=== PATIENT | male | born 1975 | race Caucasian/White ===

== ENCOUNTER 2017-07-18 12:31 | Emergency (ER) | payer OTHER, BC ==
--- NOTE | 2017-07-18 13:14 | EDM.PDOC ---
ED HPI GENERAL MEDICAL PROBLEM - General Chief Complaint: Abdominal Pain Stated Complaint: ABDOMINAL PAIN WORK RELATED Time Seen by Provider: 07/18/17 13:08 Source of Information: Reports: Patient, Family History Limitations: Reports: No Limitations - History of Present Illness INITIAL COMMENTS - FREE TEXT/NARRATIVE: HISTORY AND PHYSICAL: []41-year-old male presenting with concerns of History of Present Illness: []Patient came home from work last night. Abdominal pain straining to go to the bathroom and felt his right above his navel pain and now there is protrusion. Pain continued today and he reports to the emergency department Review of Systems: As per history of present illness and below otherwise all systems reviewed and negative. Past medical history: As per history of present illness and as reviewed below otherwise noncontributory. Surgical history: As per history of present illness and as reviewed below otherwise noncontributory. Social history: No reported history of drug or alcohol abuse. Family history: As per history of present illness and as reviewed below otherwise noncontributory. Physical exam: Heart and oriented male answering questions in full sentences without any shortness of breath HEENT: Atraumatic, normocehpalic, pupils reactive, negative for conjunctival pallor or scleral icterus, mucous membranes moist, throat clear, neck supple, nontender, trachea midline. Lungs: Clear to auscultation, breath sounds equal bilaterally, chest non tender. Heart: S1S2, regular, negative for clicks, rubs, or JVD. Abdomen: Soft, distended at the umbilicus, tender palpation herniation present this is easily reduced. Negative for masses or hepatossplenmegaly. Negative for costovertebral tenderness. Pelvis: Stable nontender. Genitourinary: Deferred. Rectal: Deferred Extremities: Atraumatic, negative for cords or calf pain. Neurovascular unremarkable. Neuro: Awake, alert, oriented. Cranial nerves II through XII unremarkable. Cerebellum unremarkable. Motor and sensory unremarkable throughout. Exam nonfocal. Diagnostics: [] Therapeutics: []Reduction of umbilical hernia Impression: []Umbilical hernia Plan: []Discharge home Refer to Dr. Marbella Higgins use the abdominal binder that you have at home Return to the emergency room as discussed and directed Definitive disposition and diagnosis as appropriate pending reevaluation and review of above. Onset: Sudden Bilateral Lower Abdomen Pain Score (Numeric/FACES): 10 - Related Data Allergies Allergy/AdvReac Type Severity Reaction Status Date / Time No Known Allergies Allergy Verified 07/18/17 12:56 Home Meds: Home Meds . [No Known Home Meds] 07/18/17 [History] Past Medical History Gastrointestinal History: Reports: Colon Polyp Genitourinary History: Reports: Renal Calculus - Past Surgical History GI Surgical History: Reports: Hernia, Inguinal Other Musculoskeletal Surgeries/Procedures:: (R) hand surgery Dermatological Surgical History: Reports: Skin Graft Social & Family History - Family History Family Medical History: Noncontributory - Tobacco Use Smoking Status *Q: Never Smoker Second Hand Smoke Exposure: No - Caffeine Use Caffeine Use: Reports: Soda Caffeine Use Comment: daily - Recreational Drug Use Recreational Drug Use: No ED ROS GENERAL - Review of Systems Review Of Systems: ROS reveals no pertinent complaints other than HPI. ED EXAM, GI/ABD - Physical Exam Exam: See Below (see dictation) Course - Vital Signs Last Recorded V/S: Last Vital Signs Temp 36.4 C 07/18/17 12:47 Pulse 82 07/18/17 12:47 Resp 18 07/18/17 12:47 BP 131/90 07/18/17 12:47 Pulse Ox 100 07/18/17 12:47 Departure - Departure Time of Disposition: 13:11 Disposition: Home, Self-Care 01 Condition: Good Clinical Impression: Abdominal pain Qualifiers: Abdominal location: periumbilical Qualified Code(s): R10.33 - Periumbilical pain Umbilical hernia Qualifiers: Obstruction and gangrene presence: without obstruction or gangrene Qualified Code(s): K42.9 - Umbilical hernia without obstruction or gangrene - Discharge Information Instructions: Umbilical Hernia, Adult Referrals: PCP,None [Primary Care Provider] - Marbella Higgins MD [Physician] - Additional Instructions: The following information is given to patients seen in the emergency department who are being discharged to home. This information is to outline your options for follow-up care. We provide all patients seen in our emergency department with a follow-up referral. The need for follow-up, as well as the timing and circumstances, are variable depending upon the specifics of your emergency department visit. If you don't have a primary care physician on staff, we will provide you with a referral. We always advise you to contact your personal physician following an emergency department visit to inform them of the circumstance of the visit and for follow-up with them and/or the need for any referrals to a consulting specialist. The emergency department will also refer you to a specialist when appropriate. This referral assures that you have the opportunity for followup care with a specialist. All of these measure are taken in an effort to provide you with optimal care, which includes your followup. Under all circumstances we always encourage you to contact your private physician who remains a resource for coordinating your care. When calling for followup care, please make the office aware that this follow-up is from your recent emergency room visit. If for any reason you are refused follow-up, please contact the [facility] emergency department at and asked to speak to the emergency department charge nurse. See Dr. Marbella Higgins [facility] Specialty Care - General Surgery Professional Building [address] [place] [address], [address] [place] [address] You may use the abdominal binder that you have at home to help keep this reduced Worsening of symptoms or changes in your health status return to emergency room as directed and discussed
== END 2017-07-18 13:31 | disposition home or self-care (01) ==
LOC: MW.ED 12:31
DX: K42.9 Umbilical hernia without obstruction or gangrene (principal)
CPT/HCPCS: 99283

== ENCOUNTER 2017-07-30 06:49 | Day surgery (SDC) | payer OTHER, BC ==
[~2017-07-30 06:49] MED LIST: Lactated Ringers 1,000 ML IV SCH; ceFAZolin 2 GM in Premix Bag 1 BAG IV SCH
[2017-07-30] MEDS ORDERED: Bupivacaine 0.5% 30 ML SDV ONE (07:23)
[2017-07-30] MEDS ORDERED: ceFAZolin 1 GM Vial ONE (07:23)
[2017-07-30] MEDS ORDERED: Ondansetron 4 MG/2 ML SDV ONE (07:24)
[2017-07-30] MEDS ORDERED: Propofol 200 MG/20 ML SDV ONE ×2 (07:24→08:25)
[2017-07-30] MEDS ORDERED: Rocuronium 10 MG/ML 10 ML Syringe ONE (07:24)
[2017-07-30] MEDS ORDERED: Midazolam 1 MG/ML 2 ML SDV ONE ×2 (07:24→08:25)
[2017-07-30] MEDS ORDERED: fentaNYL 250 MCG/5 ML SDV ONE (07:25)
--- NOTE | 2017-07-30 07:49 | PCM.PREANE ---
Preanesthetic Assessment - Procedure Proposed Procedure: umbilical hernia repair - Anesthesia/Transfusion/Family Hx Anesthesia History: Prior Anesthesia Without Reaction Family History of Anesthesia Reaction: No Transfusion History: No Prior Transfusion(s) Intubation History: Unknown - Review of Systems General: No Symptoms Pulmonary: No Symptoms, Other (former smoker) Cardiovascular: No Symptoms Gastrointestinal: Abdominal Pain (reducible umbilical hernia) Neurological: No Symptoms Other: Reports: None - Physical Assessment NPO Status Date: 07/29/17 NPO Status Time: 22:00 O2 Sat by Pulse Oximetry: 96 Respiratory Rate: 16 Vital Signs: Last Vital Signs Temp 97.2 F 07/30/17 07:33 Pulse 77 07/30/17 07:33 Resp 16 07/30/17 07:33 BP 134/82 07/30/17 07:33 Pulse Ox 96 07/30/17 07:33 Height: 5 ft 9 in Weight: 224 lb ASA Class: 2 Mental Status: Alert & Oriented x3 Airway Class: Mallampati = 2 Dentition: Reports: Normal Dentition, Caries Thyro-Mental Finger Breadths: 3 Mouth Opening Finger Breadths: 3 ROM/Head Extension: Full Lungs: Clear to Auscultation, Normal Respiratory Effort Cardiovascular: Regular Rate, Regular Rhythm, No Murmurs - Allergies Allergies/Adverse Reactions: Allergies Allergy/AdvReac Type Severity Reaction Status Date / Time codeine Allergy Nausea Verified 07/24/17 14:25 - Blood Blood Available: No Product(s) Available: None - Acknowledgements Anesthesia Type Planned: General Anesthesia (OET ) Pt an Appropriate Candidate for the Planned Anesthesia: Yes Alternatives and Risks of Anesthesia Discussed w Pt/Guardian: Yes Pt/Guardian Understands and Agrees with Anesthesia Plan: Yes PreAnesthesia Questionnaire HEENT History: Reports: Hard of Hearing Other HEENT History: corry hearing aids Gastrointestinal History: Reports: Colon Polyp, Other (See Below) Other Gastrointestinal History: occasional heartburn Genitourinary History: Reports: Renal Calculus Musculoskeletal History: Reports: Fracture Neurological History: Reports: Other (See Below) Other Neuro History: migraines in the past Endocrine/Metabolic History: Reports: Obesity/BMI 30+ - Past Surgical History Head Surgeries/Procedures: Reports: None GI Surgical History: Reports: Colonoscopy, Hernia, Inguinal Male Surgical History: Reports: Lithotripsy (ESWL) Musculoskeletal Surgical History: Reports: Other (See Below) Other Musculoskeletal Surgeries/Procedures:: (R) hand surgery with bone graft Dermatological Surgical History: Reports: Skin Graft - SUBSTANCE USE Smoking Status *Q: Former Smoker Tobacco Use Within Last Twelve Months: No Recreational Drug Use History: No - HOME MEDS Home Medications: Home Meds . [No Known Home Meds] 07/18/17 [History] - CURRENT (IN HOUSE) MEDS Current Meds: Current Medications Cefazolin Sodium/Dextrose 2 gm (/ Premix) 50 mls @ 100 mls/hr IV ONETIME LISETH Lactated Ringer's (Ringers, Lactated) 1,000 mls @ 125 mls/hr IV ASDIRECTED LISETH Last Admin: 07/30/17 07:38 Dose: 125 mls/hr Discontinued Medications Bupivacaine HCl (Marcaine 0.5%) Confirm Administered Dose 30 ml .ROUTE .STK-MED ONE Stop: 07/30/17 07:24 Cefazolin Sodium (Ancef) Confirm Administered Dose 1 gm .ROUTE .STK-MED ONE Stop: 07/30/17 07:24 Fentanyl (Sublimaze) Confirm Administered Dose 250 mcg .ROUTE .STK-MED ONE Stop: 07/30/17 07:26 Midazolam HCl (Versed 1 Mg/Ml) Confirm Administered Dose 2 mg .ROUTE .STK-MED ONE Stop: 07/30/17 07:25 Ondansetron HCl (Zofran) Confirm Administered Dose 4 mg .ROUTE .STK-MED ONE Stop: 07/30/17 07:25 Propofol (Diprivan 20 Ml) Confirm Administered Dose 200 mg .ROUTE .STK-MED ONE Stop: 07/30/17 07:25 Rocuronium Thida (Zemuron) Confirm Administered Dose 100 mg .ROUTE .STK-MED ONE Stop: 07/30/17 07:25
[2017-07-30] MEDS ORDERED: ceFAZolin/Dextrose,Iso-Osmotic 2 GM/50 ML Duplex Bag IV ONE (08:13)
[2017-07-30] MEDS ORDERED: fentaNYL 100 MCG/2 ML SDV ONE (08:25)
[2017-07-30] MEDS ORDERED: fentaNYL 100 MCG/2 ML SDV IVPUSH PRN (08:46)
[2017-07-30] MEDS ORDERED: Ketorolac 30 MG/ML SDV ONE (08:47)
[2017-07-30] MEDS ORDERED: Ondansetron 4 MG/2 ML SDV IVPUSH PRN (09:07)
[2017-07-30] MEDS ORDERED: HYDROmorphone 2 MG/ML SDV IVPUSH PRN (09:08)
[2017-07-30] MEDS ORDERED: Ketorolac 10 MG Tab PO PRN (09:09)
--- NOTE | 2017-07-30 09:14 | PCM.OPNOTE ---
- General Post-Op/Procedure Note Date of Surgery/Procedure: 07/30/17 Operative Procedure(s): Repair incarcerated umbilical hernia with 4.3 cm ventral ex mesh Pre Op Diagnosis: Incarcerated umbilical hernia Post-Op Diagnosis: Same Anesthesia Technique: General ET Tube (ASA II) Primary Surgeon: Gulshan Granger Fluid Replacement, Intraop: 1,300 EBL in mLs: 10 Condition: Good Free Text/Narrative:: DICTATION [id number] CPT CODE [id number]
[2017-07-30] MEDS ORDERED: Lactated Ringers 1,000 ML IV SCH (09:15)
--- NOTE | 2017-07-30 09:27 | OR ---
SURGEON: Gulshan Granger M.D. DATE OF PROCEDURE: 07/30/2017 PROCEDURE PERFORMED: Repair of incarcerated umbilical hernia with 4.3 cm Ventralex mesh. ANESTHESIA: General endotracheal. ASA CLASSIFICATION: II. PREOPERATIVE DIAGNOSIS: Incarcerated umbilical hernia. POSTOPERATIVE DIAGNOSIS: Incarcerated umbilical hernia. ESTIMATED BLOOD LOSS: 10 mL. INTRAOPERATIVE FLUID REPLACEMENT: 1300 mL of crystalloid. DESCRIPTION OF PROCEDURE: The patient was taken to the operating room and placed on the operating table in a supine position. Time-out was called for appropriate identification of the patient and procedure. Thigh-high KAL and sequential compression boots were placed. Following satisfactory attainment of general endotracheal anesthesia, the abdomen was prepped with DuraPrep solution. Sterile drapes were applied. The skin overlying the umbilicus was infiltrated with 8 mL of 0.5% Marcaine solution. Field block was also accomplished. A skin incision was then made just above the umbilicus extending into the umbilicus and deepened into the subcutaneous tissue. The hernia sac was sharply dissected away from the surrounding fascia. The under side of the fascia was then cleared to allow for placement of mesh. A 4.3 cm Ventralex mesh was brought to the operating table and soaked in 1% Ancef solution. This was then placed in an underlay technique and secured to the fascia with interrupted 0 Ethibond horizontal mattress sutures. All sutures were placed under direct vision and held with hemostats. Once all sutures have been placed, they were secured. The patient was given a Valsalva maneuver to 35 cm of water. No defect was noted. The wings of the Ventralex mesh were then trimmed. The fascia was then reapproximated over the mesh again with interrupted 0 Ethibond sutures. The wound was then inspected for hemostasis and no bleeding was noted. The wound was irrigated with 1% Ancef solution and all fluid aspirated. Subcutaneous tissue was reapproximated with 3- 0 Vicryl. The skin edges were reapproximated with subcuticular 4-0 Monocryl reinforced with Steri-Strips. Sterile Tegaderm pad was placed as a dressing. Sponge, needle, and instrument counts were all correct. The patient tolerated the procedure well and was taken to recovery room in stable condition. CANDACE / RAVNE /[id number]
--- NOTE | 2017-07-30 09:44 | PCM.POSTAN ---
POST ANESTHESIA ASSESSMENT - MENTAL STATUS Mental Status: Oriented, Somnolent - VITAL SIGNS Pulse Rate: 76 SaO2: 98 Resp Rate: 12 Blood Pressure: 126/76 - RESPIRATORY Respiratory Status: Respiratory Rate WNL, Airway Patent, O2 Saturation Stable - CARDIOVASCULAR CV Status: Pulse Rate WNL, Blood Pressure Stable - GASTROINTESTINAL GI Status: No Symptoms - PAIN Pain Score: 0 - POST OP HYDRATION Hydration Status: Adequate & Stable
--- NOTE | 2017-07-30 12:21 | PCM48HPAN ---
Post Anesthesia Note - EVALUATION WITHIN 48HRS OF ANESTHETIC Vital Signs in Normal Range: Yes Patient Participated in Evaluation: Yes Respiratory Function Stable: Yes Airway Patent: Yes Cardiovascular Function Stable: Yes Hydration Status Stable: Yes Pain Control Satisfactory: Yes Nausea and Vomiting Control Satisfactory: Yes Mental Status Recovered: Yes Pulse Rate: 76 Resp Rate: 14 Blood Pressure: 126/76
== END 2017-07-30 12:30 | disposition home or self-care (01) ==
LOC: MW.SDS 06:49
PROVIDERS: ATTEND Surgery
DX: K42.0 Umbilical hernia with obstruction, without gangrene (principal); E66.9 Obesity, unspecified; Z88.5 Allergy status to narcotic agent; Z86.010 Personal history of colon polyps; Z87.442 Personal history of urinary calculi; Z98.890 Other specified postprocedural states; Z87.891 Personal history of nicotine dependence; Z68.30 Body mass index [BMI] 30.0-30.9, adult
CPT/HCPCS: 49587; C1781; J0690; J1885; J2250; J2405; J3010; J7120; J2704

== ENCOUNTER 2017-10-29 09:52 | Day surgery (SDC) | payer BC ==
[~2017-10-29 09:52] MED LIST changes: -ceFAZolin 2 GM in Premix Bag 1 BAG IV SCH
--- NOTE | 2017-10-29 10:25 | PCM.PREANE ---
Preanesthetic Assessment - Procedure Proposed Procedure: Colonoscopy - Anesthesia/Transfusion/Family Hx Anesthesia History: Prior Anesthesia Without Reaction Family History of Anesthesia Reaction: No Transfusion History: No Prior Transfusion(s) Intubation History: Unknown Additional History: Sugars have been in normal range; wears hearing aids - Review of Systems General: No Symptoms Pulmonary: Other (former smoker) Cardiovascular: No Symptoms Gastrointestinal: Other (hx of polyps) Neurological: No Symptoms Other: Reports: Diabetes (Type II - on metformin) - Physical Assessment NPO Status Date: 10/28/17 NPO Status Time: 22:00 Height: 5 ft 10 in Weight: 211 lb ASA Class: 2 Mental Status: Alert & Oriented x3 Airway Class: Mallampati = 1 Dentition: Reports: Normal Dentition Thyro-Mental Finger Breadths: 3 Mouth Opening Finger Breadths: 3 ROM/Head Extension: Limited/Partial Lungs: Clear to Auscultation, Normal Respiratory Effort Cardiovascular: Regular Rate, Regular Rhythm - Allergies Allergies/Adverse Reactions: Allergies Allergy/AdvReac Type Severity Reaction Status Date / Time codeine Allergy Nausea Verified 10/25/17 10:19 - Blood Blood Available: No Product(s) Available: None - Anesthesia Plan Pre-Op Medication Ordered: None - Acknowledgements Anesthesia Type Planned: MAC Pt an Appropriate Candidate for the Planned Anesthesia: Yes Alternatives and Risks of Anesthesia Discussed w Pt/Guardian: Yes Pt/Guardian Understands and Agrees with Anesthesia Plan: Yes PreAnesthesia Questionnaire HEENT History: Reports: Hard of Hearing Other HEENT History: has bilateral hearing aides Gastrointestinal History: Reports: Colon Polyp Other Gastrointestinal History: occasional heartburn Genitourinary History: Reports: Renal Calculus Musculoskeletal History: Reports: Fracture Other Musculoskeletal History: hx of fx right hand Neurological History: Reports: Other (See Below) Other Neuro History: hx of motion sickness Endocrine/Metabolic History: Reports: Diabetes, Type II - Past Surgical History Head Surgeries/Procedures: Reports: None GI Surgical History: Reports: Colonoscopy, Hernia, Inguinal, Other (See Below) Other GI Surgeries/Procedures: hx of bilateral inguinal hernia repairs and umbilical hernia repair Male Surgical History: Reports: Lithotripsy (ESWL) Musculoskeletal Surgical History: Reports: ORIF Other Musculoskeletal Surgeries/Procedures:: hx of pinning right hand fx, pins removed and ORIF with plate and screws - SUBSTANCE USE Smoking Status *Q: Former Smoker Tobacco Use Within Last Twelve Months: No Recreational Drug Use History: No - HOME MEDS Home Medications: Home Meds metFORMIN HCl [Metformin HCl] 500 mg PO BID 10/25/17 [History] - CURRENT (IN HOUSE) MEDS Current Meds: Current Medications Lactated Ringer's (Ringers, Lactated) 1,000 mls @ 125 mls/hr IV ASDIRECTED LISETH
[2017-10-29] MEDS ORDERED: Propofol 200 MG/20 ML SDV ONE ×2 (10:48→11:40)
[2017-10-29] MEDS ORDERED: fentaNYL 100 MCG/2 ML SDV ONE (10:48)
[2017-10-29] MEDS ORDERED: Midazolam 1 MG/ML 2 ML SDV ONE (10:48)
[2017-10-29] MEDS ORDERED: Lidocaine 2% 5 ML SDV ONE (10:48)
[2017-10-29] MEDS ORDERED: ePHEDrine 50 MG/ML SDV ONE ×2 (11:03)
[2017-10-29] MEDS ORDERED: Ondansetron 4 MG/2 ML SDV IVPUSH PRN (12:04)
[2017-10-29] MEDS ORDERED: Sodium Chloride 0.9% 10 ML Syringe FLUSH PRN (12:04)
[2017-10-29] MEDS ORDERED: Sodium Chloride 0.9% 2.5 ML Syringe FLUSH PRN (12:04)
--- NOTE | 2017-10-29 12:07 | PCM.OPNOTE ---
- General Post-Op/Procedure Note Date of Surgery/Procedure: 10/29/17 Operative Procedure(s): Colonoscopy w/ snare descending colon polypectomy Pre Op Diagnosis: Personal history of colon polyps. Intermittent rectal bleeding. Post-Op Diagnosis: Descending colon polyp Anesthesia Technique: MAC (ASA II) Primary Surgeon: Gulshan Granger Winding Inspector: Jerson Avitia Condition: Good Free Text/Narrative:: Dictation [id number] CPT CODE [id number]
--- NOTE | 2017-10-29 12:22 | PCM.POSTAN ---
POST ANESTHESIA ASSESSMENT - MENTAL STATUS Mental Status: Oriented, Somnolent - RESPIRATORY Respiratory Status: Respiratory Rate WNL, Airway Patent, O2 Saturation Stable - CARDIOVASCULAR CV Status: Pulse Rate WNL, Blood Pressure Stable - GASTROINTESTINAL GI Status: No Symptoms - POST OP HYDRATION Hydration Status: Adequate & Stable
--- NOTE | 2017-10-29 12:54 | OR ---
SURGEON: Gulshan Granger M.D. DATE OF PROCEDURE: 10/29/2017 OPERATION PERFORMED: Colonoscopy with snare descending colon polypectomy. SUPERVISOR LINE DEPARTMENT: Dr. Varner, PGY2. ANESTHESIA: MAC. ASA CLASSIFICATION: II. PREOPERATIVE DIAGNOSES: 1. Personal history of colon polyps. 2. Intermittent rectal bleeding. POSTOPERATIVE DIAGNOSIS: Descending colon polyp. DESCRIPTION OF PROCEDURE: The patient was taken to the endoscopy room and positioned on the endoscopy table in the left lateral decubitus position. Time-out was called for appropriate identification of the patient and procedure. Monitored anesthesia care was provided. The colonoscope was inserted into the rectum and advanced with minimal difficulty to the cecum where the colonoscope was retroflexed to visualize the ascending colon from below. The colonoscope was then straightened and slowly withdrawn. The cecum, ascending colon, hepatic flexure, transverse colon, and splenic flexure showed no tumors, polyps, diverticula, or angiodysplasia. There was no evidence of inflammatory bowel disease. One polyp was encountered in the descending colon and removed with the snare electrocautery. There were no bleeding and no obvious perforation. The sigmoid colon showed no tumors, polyps, or diverticula. No stricture, spasm, or bleeding was noted. The colonoscope was withdrawn to the rectum and retroflexed to visualize the anal orifice from above. Again, no tumors or polyps were seen and there were no acute hemorrhoidal changes. The colonoscope was then straightened, the rectum aspirated, and the colonoscope removed. The patient tolerated the procedure well and was taken to recovery room in stable condition. CANDACE / RAVEN /[id number]
--- NOTE | 2017-10-29 13:06 | PCM48HPAN ---
Post Anesthesia Note - EVALUATION WITHIN 48HRS OF ANESTHETIC Vital Signs in Normal Range: Yes Patient Participated in Evaluation: Yes Respiratory Function Stable: Yes Airway Patent: Yes Cardiovascular Function Stable: Yes Hydration Status Stable: Yes Pain Control Satisfactory: Yes Nausea and Vomiting Control Satisfactory: Yes Mental Status Recovered: Yes Resp Rate: 13
== END 2017-10-29 13:10 | disposition home or self-care (01) ==
LOC: MW.SDS 09:52
PROVIDERS: ATTEND Surgery
DX: K62.5 Hemorrhage of anus and rectum (principal); K51.40 Inflammatory polyps of colon without complications; E11.9 Type 2 diabetes mellitus without complications; N50.89 Other specified disorders of the male genital organs; K42.0 Umbilical hernia with obstruction, without gangrene; Z79.84 Long term (current) use of oral hypoglycemic drugs; Z88.5 Allergy status to narcotic agent; Z98.890 Other specified postprocedural states; Z86.010 Personal history of colon polyps; Z87.891 Personal history of nicotine dependence; Z83.71 Family history of colonic polyps
CPT/HCPCS: 45385; 88305; J2250; J2704; J3010; J7120; 00811

== ENCOUNTER 2017-11-05 07:22 | Emergency (ER) | payer BC ==
[2017-11-05] MEDS ORDERED: Sodium Chloride 0.9% 1,000 ML IV ONE ×2 (07:44→08:56)
[2017-11-05] MEDS ORDERED: Sodium Chloride 0.9% 2.5 ML Syringe FLUSH PRN (07:44)
[2017-11-05] MEDS ORDERED: Sodium Chloride 0.9% 10 ML Syringe FLUSH PRN (07:44)
--- NOTE | 2017-11-05 07:46 | EDM.PDOC ---
ED HPI GENERAL MEDICAL PROBLEM - General Chief Complaint: General Stated Complaint: CHILLS, DIARRHEA, MILD CHEST PAIN YESTERDAY Time Seen by Provider: 11/05/17 07:31 - History of Present Illness INITIAL COMMENTS - FREE TEXT/NARRATIVE: HISTORY AND PHYSICAL: History of present illness: The patient is a 41-year-old male who follows in our clinic with Dr. Dixon and was recently diagnosed about a month ago with diabetes and is on metformin but says he has not taken it for the last 1 week because he doesn't like the way it makes him feel and also had a colonoscopy on October 29 of this year-- diagnosed him with a colonic polyp-- and presents with a 24-hour history of diffuse body aches joint pain diarrhea 10 ( which is watery) and malaise. The patient has also had chills but no fever and his is checked his blood sugar at home and it is not abnormal. He has had decreased urine output and has not had a documented fever just the chills. The patient has had watery stools which are not black or bloody and he had some nausea earlier this morning which is gone and he has not had any vomiting. He has no upper respiratory symptoms and he is not dizzy and he has not passed out. He has no head neck or back pain and earlier had some upper abdominal epigastric pain and discomfort which caused him to be unable to take a deep breath which is now gone. The patient has not taken anything [id number] for the symptoms. He says that he feels sweaty intermittently and is globally weak without any focal weakness. The patient says that he was in [place] on Sunday and he ate out all day at restaurants and he also ate out yesterday here in [place] but has not had any exotic travel. He has no ill contacts. Patient has a scheduled follow up appointment with his provider in the clinic to reevaluate his diabetic medication as he is stopped them one week ago. Currently on my evaluation he does feels weak and drained and ill but has no abdominal pain chest pain shortness of breath. Review of systems: As per history of present illness and below otherwise all systems reviewed and negative. Past medical history: As per history of present illness and as reviewed below otherwise noncontributory. Surgical history: As per history of present illness and as reviewed below otherwise noncontributory. Social history: No reported history of drug or alcohol abuse. Family history: As per history of present illness and as reviewed below otherwise noncontributory. Physical exam: General: Well-developed well-nourished man who is nontoxic and vital signs are reviewed by me. He moves easily in the ED without distress. HEENT: Atraumatic, normocephalic, negative for conjunctival pallor or scleral icterus, mucous membranes tacky, throat clear, neck supple, nontender, trachea midline. Lungs: Clear to auscultation, breath sounds equal bilaterally, chest nontender. No wheezing or stridor Heart: S1S2, regular rhythm no overt murmurs and the patient was slightly tachycardic on my evaluation Abdomen: Soft, nondistended, nontender. The patient has some old scar tissue at the umbilicus just superiorly where he had an umbilical hernia repaired and bowel sounds are hypoactive. There is no tympany on percussion no rebound no guarding on palpation and no tenderness in any one specific area on my examination. Negative for masses or hepatosplenomegaly. Negative for costovertebral tenderness. Pelvis: Stable nontender. Genitourinary: Deferred. Rectal: Deferred. Extremities: Atraumatic, negative for cords or calf pain. Neurovascular unremarkable. Neuro: Awake, alert, oriented. Cranial nerves II through XII unremarkable. Cerebellum unremarkable. Motor and sensory unremarkable throughout. Exam nonfocal. Diagnostics: CBC CMP magnesium level H pylori UA lactate ketones orthostatic vitals stool for WBC culture and C. difficile Therapeutics: IV fluids I discussed all testing results with the patient and at bedside and as he has not produced a stool sample I will give him the tools and a prescription to bring it to outpatient lab and the results will be sent to his provider in the clinic Dr. Dixon I attempted to call Dr. Dixon who was not available until 1 PM slight told the family and patient that I will inform him later of this visit. I will give him Bentyl for home as well as the treatment for H. pylori Impression: Acute diarrheal illness; H. pylori positive Definitive disposition and diagnosis as appropriate pending reevaluation and review of above. Generalized Pain Score (Numeric/FACES): 5 - Related Data Allergies Allergy/AdvReac Type Severity Reaction Status Date / Time codeine Allergy Nausea Verified 11/05/17 07:36 Home Meds: Home Meds . [No Known Home Meds] 11/05/17 [History] Past Medical History HEENT History: Reports: Hard of Hearing Other HEENT History: has bilateral hearing aides Gastrointestinal History: Reports: Colon Polyp Other Gastrointestinal History: occasional heartburn Genitourinary History: Reports: Renal Calculus Musculoskeletal History: Reports: Fracture Other Musculoskeletal History: hx of fx right hand Neurological History: Reports: Other (See Below) Other Neuro History: hx of motion sickness Endocrine/Metabolic History: Reports: Diabetes, Type II - Infectious Disease History Infectious Disease History: Reports: Chicken Pox - Past Surgical History Head Surgeries/Procedures: Reports: None GI Surgical History: Reports: Colonoscopy, Hernia, Inguinal, Other (See Below) Other GI Surgeries/Procedures: hx of bilateral inguinal hernia repairs and umbilical hernia repair Male Surgical History: Reports: Lithotripsy ([facility]) Musculoskeletal Surgical History: Reports: ORIF Other Musculoskeletal Surgeries/Procedures:: hx of pinning right hand fx, pins removed and ORIF with plate and screws Dermatological Surgical History: Reports: Skin Graft Social & Family History - Family History Family Medical History: Noncontributory - Tobacco Use Smoking Status *Q: Never Smoker - Caffeine Use Caffeine Use: Reports: Soda Caffeine Use Comment: daily - Recreational Drug Use Recreational Drug Use: No ED ROS GENERAL - Review of Systems Review Of Systems: ROS reveals no pertinent complaints other than HPI. ED EXAM, GENERAL - Physical Exam Exam: See Below (See dictation) Course - Vital Signs Last Recorded V/S: Last Vital Signs Temp 36.1 C 11/05/17 07:34 Pulse 116 H 11/05/17 07:34 Resp 18 11/05/17 07:34 BP 124/79 11/05/17 07:34 Pulse Ox 95 11/05/17 07:34 Orthostatic Blood Pressure [ 121/72 Standing] Orthostatic Blood Pressure [ 119/77 Sitting] Orthostatic Blood Pressure [ 109/73 Supine] - Orders/Labs/Meds Orders: Active Orders 24 hr Category Date Time Status Communication Order [RC] STAT Care 11/05/17 09:22 Ordered Orthostatic Vital Signs [RC] ASDIRECTED Care 11/05/17 07:44 Active CDIFF TOX A+B [OP] Stat Lab 11/05/17 07:44 Ordered CULTURE STOOL + CAMPY+SHIGATOX [RM] Stat Lab 11/05/17 07:44 Ordered CULTURE URINE [RM] Stat Lab 11/05/17 09:15 Ordered UA W/MICROSCOPIC [URIN] Stat Lab 11/05/17 08:44 Ordered WBC, STOOL [OP] Stat Lab 11/05/17 07:45 Ordered Sodium Chloride 0.9% [Normal Saline] 1,000 ml Med 11/05/17 08:56 Active IV STAT Sodium Chloride 0.9% [Saline Flush] Med 11/05/17 07:44 Active 10 ml FLUSH ASDIRECTED PRN Sodium Chloride 0.9% [Saline Flush] Med 11/05/17 07:44 Active 2.5 ml FLUSH ASDIRECTED PRN Saline Lock Insert [OM.PC] Stat Oth 11/05/17 07:43 Ordered Medication Orders Sodium Chloride (Normal Saline) 1,000 mls @ 999 mls/hr IV STAT ONE Stop: 11/05/17 09:56 Sodium Chloride (Saline Flush) 10 ml FLUSH ASDIRECTED PRN PRN Reason: Keep Vein Open Sodium Chloride (Saline Flush) 2.5 ml FLUSH ASDIRECTED PRN PRN Reason: Keep Vein Open Labs: Laboratory Tests 11/05/17 11/05/17 11/05/17 Range/Units 08:04 08:04 08:04 WBC 5.71 (4.0-11.0) K/uL RBC 4.61 (4.50-5.90) M/uL Hgb 14.0 (13.0-17.0) g/dL Hct 40.2 (38.0-50.0) % MCV 87.2 (80.0-98.0) fL MCH 30.4 (27.0-32.0) pg MCHC 34.8 (31.0-37.0) g/dL RDW Std Deviation 39.9 (28.0-62.0) fl RDW Coeff of Mar 13 (11.0-15.0) % Plt Count 212 (150-400) K/uL MPV 9.60 (7.40-12.00) fL Neut % (Auto) 74.8 (48.0-80.0) % Lymph % (Auto) 16.3 (16.0-40.0) % [facility] % (Auto) 8.2 (0.0-15.0) % Eos % (Auto) 0.5 (0.0-7.0) % Baso % (Auto) 0.2 (0.0-1.5) % Neut # (Auto) 4.3 (1.4-5.7) K/uL Lymph # (Auto) 0.9 (0.6-2.4) K/uL [facility] # (Auto) 0.5 (0.0-0.8) K/uL Eos # (Auto) 0.0 (0.0-0.7) K/uL Baso # (Auto) 0.0 (0.0-0.1) K/uL Nucleated RBC % 0.0 /100WBC Nucleated RBCs # 0 K/uL Lactate 1.6 (0.20-2.00) mmol/L Sodium 136 (136-148) mmol/L Potassium 4.2 (3.5-5.1) mmol/L Chloride 105 (98-107) mmol/L Carbon Dioxide 22.9 (21.0-32.0) mmol/L BUN 16 (7.0-18.0) mg/dL Creatinine 1.0 (0.8-1.3) mg/dL Est Cr Clr Drug Dosing 98.19 mL/min Estimated GFR (MDRD) > 60.0 ml/min Glucose 132 H (74-106) mg/dL Calcium 8.5 (8.5-10.1) mg/dL Magnesium 1.7 L (1.8-2.4) mg/dL Total Bilirubin 0.4 (0.2-1.0) mg/dL AST 17 (15-37) IU/L ALT 36 (14-63) IU/L Alkaline Phosphatase 61 (46-116) U/L Total Protein 7.4 (6.4-8.2) g/dL Albumin 3.9 (3.4-5.0) g/dL Globulin 3.5 (2.0-3.5) g/dL Albumin/Globulin Ratio 1.1 L (1.3-2.8) Urine Color Urine Appearance Urine pH (5.0-8.0) Ur Specific Spelter (1.001-1.035) Urine Protein (NEGATIVE) mg/dL Urine Glucose (UA) (NEGATIVE) mg/dL Urine Ketones (NEGATIVE) mg/dL Urine Occult Blood (NEGATIVE) Urine Nitrite (NEGATIVE) Urine Bilirubin (NEGATIVE) Urine Urobilinogen (<2.0) EU/dL Ur Leukocyte Esterase (NEGATIVE) Urine RBC (0-2/HPF) Urine WBC (0-5/HPF) Ur Epithelial Cells (NONE-FEW) Calcium Oxalate Crystal (NEGATIVE) Urine Bacteria (NEGATIVE) Urine Mucus (NONE-MOD) Ketones (NEG) H. pylori IgG Antibody (NEG) 11/05/17 11/05/17 11/05/17 Range/Units 08:04 08:04 08:44 WBC (4.0-11.0) K/uL RBC (4.50-5.90) M/uL Hgb (13.0-17.0) g/dL Hct (38.0-50.0) % MCV (80.0-98.0) fL MCH (27.0-32.0) pg MCHC (31.0-37.0) g/dL RDW Std Deviation (28.0-62.0) fl RDW Coeff of Mar (11.0-15.0) % Plt Count (150-400) K/uL MPV (7.40-12.00) fL Neut % (Auto) (48.0-80.0) % Lymph % (Auto) (16.0-40.0) % [facility] % (Auto) (0.0-15.0) % Eos % (Auto) (0.0-7.0) % Baso % (Auto) (0.0-1.5) % Neut # (Auto) (1.4-5.7) K/uL Lymph # (Auto) (0.6-2.4) K/uL [facility] # (Auto) (0.0-0.8) K/uL Eos # (Auto) (0.0-0.7) K/uL Baso # (Auto) (0.0-0.1) K/uL Nucleated RBC % /100WBC Nucleated RBCs # K/uL Lactate (0.20-2.00) mmol/L Sodium (136-148) mmol/L Potassium (3.5-5.1) mmol/L Chloride (98-107) mmol/L Carbon Dioxide (21.0-32.0) mmol/L BUN (7.0-18.0) mg/dL Creatinine (0.8-1.3) mg/dL Est Cr Clr Drug Dosing mL/min Estimated GFR (MDRD) ml/min Glucose (74-106) mg/dL Calcium (8.5-10.1) mg/dL Magnesium (1.8-2.4) mg/dL Total Bilirubin (0.2-1.0) mg/dL AST (15-37) IU/L ALT (14-63) IU/L Alkaline Phosphatase (46-116) U/L Total Protein (6.4-8.2) g/dL Albumin (3.4-5.0) g/dL Globulin (2.0-3.5) g/dL Albumin/Globulin Ratio (1.3-2.8) Urine Color YELLOW Urine Appearance CLEAR Urine pH 6.0 (5.0-8.0) Ur Specific Sp[place] 1.015 (1.001-1.035) Urine Protein NEGATIVE (NEGATIVE) mg/dL Urine Glucose (UA) NEGATIVE (NEGATIVE) mg/dL Urine Ketones NEGATIVE (NEGATIVE) mg/dL Urine Occult Blood NEGATIVE (NEGATIVE) Urine Nitrite NEGATIVE (NEGATIVE) Urine Bilirubin NEGATIVE (NEGATIVE) Urine Urobilinogen 0.2 (<2.0) EU/dL Ur Leukocyte Esterase TRACE (NEGATIVE) Urine RBC 0-1 (0-2/HPF) Urine WBC 4-8 (0-5/HPF) Ur Epithelial Cells OCCASIONAL (NONE-FEW) Calcium Oxalate Crystal OCCASIONAL (NEGATIVE) Urine Bacteria FEW (NEGATIVE) Urine Mucus LIGHT (NONE-MOD) Ketones SMALL H (NEG) H. pylori IgG Antibody POSITIVE H (NEG) Meds: Medications Generic Name Dose Route Start Last Admin Trade Name Freq PRN Reason Stop Dose Admin Sodium Chloride 1,000 mls @ 999 mls/hr 11/05/17 08:56 Normal Saline IV 11/05/17 09:56 STAT ONE Sodium Chloride 10 ml 11/05/17 07:44 Saline Flush FLUSH ASDIRECTED PRN Keep Vein Open Sodium Chloride 2.5 ml 11/05/17 07:44 Saline Flush FLUSH ASDIRECTED PRN Keep Vein Open Discontinued Medications Generic Name Dose Route Start Last Admin Trade Name Freq PRN Reason Stop Dose Admin Sodium Chloride 1,000 mls @ 999 mls/hr 11/05/17 07:44 11/05/17 08:54 Normal Saline IV 11/05/17 08:44 999 mls/hr STAT ONE Administration Departure - Departure Time of Disposition: 09:23 Disposition: Home, Self-Care 01 Condition: Good Clinical Impression: Acute diarrhea, Helicobacter pylori infection - Discharge Information Referrals: Dallas Dixon MD [Primary Care Provider] - Forms: ED Department Discharge Additional Instructions: The following information is given to patients seen in the emergency department who are being discharged to home. This information is to outline your options for follow-up care. We provide all patients seen in our emergency department with a follow-up referral. The need for follow-up, as well as the timing and circumstances, are variable depending upon the specifics of your emergency department visit. If you don't have a primary care physician on staff, we will provide you with a referral. We always advise you to contact your personal physician following an emergency department visit to inform them of the circumstance of the visit and for follow-up with them and/or the need for any referrals to a consulting specialist. The emergency department will also refer you to a specialist when appropriate. This referral assures that you have the opportunity for followup care with a specialist. All of these measure are taken in an effort to provide you with optimal care, which includes your followup. Under all circumstances we always encourage you to contact your private physician who remains a resource for coordinating your care. When calling for followup care, please make the office aware that this follow-up is from your recent emergency room visit. If for any reason you are refused follow-up, please contact the [facility] emergency department at and ask to speak to the emergency department charge nurse. [facility] Primary care- Internal Medicine and Family [address] [address] Push hydration and electrolyte solutions and please collect and bring a stool specimen to the outpatient lab as you have been directed for further testing. Please fill the prescriptions and take all medications as prescribed and keep your appointment with Dr. Dixon in the clinic as scheduled. Rest and do not use any [id number] antidiarrheals until the results of your stool culture and sample are known. Return to ER as needed and as discussed - My Orders Last 24 Hours: My Active Orders 11/05/17 07:43 Saline Lock Insert [OM.PC] Stat 11/05/17 07:44 Orthostatic Vital Signs [RC] ASDIRECTED CDIFF TOX A+B [OP] Stat CULTURE STOOL + CAMPY+SHIGATOX [RM] Stat Sodium Chloride 0.9% [Saline Flush] 10 ml FLUSH ASDIRECTED PRN Sodium Chloride 0.9% [Saline Flush] 2.5 ml FLUSH ASDIRECTED PRN 11/05/17 07:45 WBC, STOOL [OP] Stat 11/05/17 08:44 UA W/MICROSCOPIC [URIN] Stat 11/05/17 08:56 Sodium Chloride 0.9% [Normal Saline] 1,000 ml IV STAT 11/05/17 09:15 CULTURE URINE [RM] Stat 11/05/17 09:22 Communication Order [RC] STAT - Assessment/Plan Last 24 Hours: My Active Orders 11/05/17 07:43 Saline Lock Insert [OM.PC] Stat 11/05/17 07:44 Orthostatic Vital Signs [RC] ASDIRECTED CDIFF TOX A+B [OP] Stat CULTURE STOOL + CAMPY+SHIGATOX [RM] Stat Sodium Chloride 0.9% [Saline Flush] 10 ml FLUSH ASDIRECTED PRN Sodium Chloride 0.9% [Saline Flush] 2.5 ml FLUSH ASDIRECTED PRN 11/05/17 07:45 WBC, STOOL [OP] Stat 11/05/17 08:44 UA W/MICROSCOPIC [URIN] Stat 11/05/17 08:56 Sodium Chloride 0.9% [Normal Saline] 1,000 ml IV STAT 11/05/17 09:15 CULTURE URINE [RM] Stat 11/05/17 09:22 Communication Order [RC] STAT
[2017-11-05 08:34] LABS: CHLORIDE,CL 105 mmol/L (98-107); SODIUM,NA 136 mmol/L (136-148)
== END 2017-11-05 10:47 | disposition home or self-care (01) ==
LOC: MW.ED 07:22
DX: A04.8 Other specified bacterial intestinal infections (principal); R19.7 Diarrhea, unspecified; E11.9 Type 2 diabetes mellitus without complications; Z88.5 Allergy status to narcotic agent
CPT/HCPCS: 36415; 80053; 81001; 82009; 83605; 83735; 85025; 86677; 87086; 96360; 96361; 99284; J7040

== ENCOUNTER 2018-07-12 16:18 | Emergency (ER) | payer OTHER, BC ==
[2018-07-12] MEDS ORDERED: Bacitracin Oint 1 GM U/D Packet TOP ONE (17:43)
--- NOTE | 2018-07-12 17:45 | EDM.PDOC ---
ED HPI GENERAL MEDICAL PROBLEM - General Chief Complaint: Laceration Stated Complaint: CUT RIGHT INDEX FINGER Time Seen by Provider: 07/12/18 17:43 Source of Information: Reports: Patient History Limitations: Reports: No Limitations - History of Present Illness INITIAL COMMENTS - FREE TEXT/NARRATIVE: HISTORY AND PHYSICAL: History of present illness: Patient is a 42-year-old male presents to the ED today with concern of a second finger laceration of the right hand. Patient states his hand slid out and he had one by a piece of metal at work. Patient states there has been minimal blood loss and this occurred just prior to arrival to the ED. Patient has full range of motion of all fingers and wrist. Patient denies prior injury to the area. Patient states he just recently had a teardrop vaccine. Patient denies fever, chills, chest pain, shortness of breath, or cough. Denies headache, neck stiff ness, change in vision, syncope, or near syncope. Denies nausea, vomiting, abdominal pain, diarrhea, constipation, or dysuria. Has not noted any blood in urine or stool. Patient has been eating and drinking appropriately. Review of systems: As per history of present illness and below otherwise all systems reviewed and negative. Past medical history: As per history of present illness and as reviewed below otherwise noncontributory. Surgical history: As per history of present illness and as reviewed below otherwise noncontributory. Social history: See social history for further information Family history: As per history of present illness and as reviewed below otherwise noncontributory. Physical exam: General: Patient is alert, oriented, and in no acute distress. Patient sitting comfortably on exam table. HEENT: Atraumatic, normocephalic, pupils equal and reactive bilaterally, negative for conjunctival pallor or scleral icterus, mucous membranes moist, TMs normal bilaterally, throat clear, neck supple, nontender, trachea midline. No drooling or trismus noted. No meningeal signs. No hot potato voice noted. Lungs: Clear to auscultation, breath sounds equal bilaterally, chest nontender. Heart: S1S2, regular rate and rhythm without overt murmur Abdomen: Soft, nondistended, nontender. Negative for masses or hepatosplenomegaly. Negative for costovertebral tenderness. Pelvis: Stable nontender. Genitourinary: Deferred. Rectal: Deferred. Skin: Intact, warm, dry. No lesions or rashes noted. Extremities: Negative for cords or calf pain. Neurovascular unremarkable. There is a 1 cm laceration on the dorsal aspect of the second finger, superficial, with very minimal blood loss. No underlying subcutaneous injury or tendon injury. Full range of motion of wrist and all digits of the hand. Radial pulses grossly intact.. Capillary refill less than 2 seconds. Neuro: Awake, alert, oriented. Cranial nerves II through XII unremarkable. Cerebellum unremarkable. Motor and sensory unremarkable throughout. Exam nonfocal. Notes: Discussed the importance for follow-up with a primary care provider. Voices understanding and is agreeable to plan of care. Denies any further questions or concerns at this time. Diagnostics: Patient declines imaging Therapeutics: Sutures, bacitracin, sterile dressing Prescription: None Impression: Finger laceration Plan: 1. Keep the area clean and dry. Continue to monitor for signs of infection as discussed. Sutures to be removed in 7-10 days. 2. Tylenol and/or ibuprofen as directed and as needed for pain management and discomfort. 3. Please follow-up with your primary care provider as discussed. Return to the ED as needed and as discussed. Definitive disposition and diagnosis as appropriate pending reevaluation and review of above. - Related Data Allergies Allergy/AdvReac Type Severity Reaction Status Date / Time codeine Allergy Nausea Verified 07/12/18 16:57 Home Meds: Home Meds . [No Known Home Meds] 11/05/17 [History] Past Medical History HEENT History: Reports: Hard of Hearing Other HEENT History: has bilateral hearing aides Gastrointestinal History: Reports: Colon Polyp Other Gastrointestinal History: occasional heartburn Genitourinary History: Reports: Renal Calculus Musculoskeletal History: Reports: Fracture Other Musculoskeletal History: hx of fx right hand Neurological History: Reports: Other (See Below) Other Neuro History: hx of motion sickness Endocrine/Metabolic History: Reports: Diabetes, Type II - Infectious Disease History Infectious Disease History: Reports: Chicken Pox - Past Surgical History Head Surgeries/Procedures: Reports: None GI Surgical History: Reports: Colonoscopy, Hernia, Inguinal, Other (See Below) Other GI Surgeries/Procedures: hx of bilateral inguinal hernia repairs and umbilical hernia repair Male Surgical History: Reports: Lithotripsy (ESWL) Musculoskeletal Surgical History: Reports: ORIF Other Musculoskeletal Surgeries/Procedures:: hx of pinning right hand fx, pins removed and ORIF with plate and screws Dermatological Surgical History: Reports: Skin Graft Social & Family History - Family History Family Medical History: Noncontributory - Caffeine Use Caffeine Use: Reports: Soda Caffeine Use Comment: daily ED ROS GENERAL - Review of Systems Review Of Systems: ROS reveals no pertinent complaints other than HPI. ED EXAM, SKIN/RASH Exam: See Below (See dictation) ED SKIN PROCEDURES - Laceration/Wound Repair Right Midline Dorsal Digit - 2nd (Index) Lac/Wound length In cm: 1 Appearance: Superficial, Linear, Mildly Contaminated Distal NVT: Neuro & Vascular Intact, No Tendon Injury Skin Prep: Chlorhexidine (Hibiciens), Providone-Iodine (Betadine) Saline Irrigation (cc's): 20 Exploration/Debridement/Repair: Wound Explored, In a Bloodless Field, Explored to Base, No Foreign Material Found Closed with: Sutures Suture Size: 4-0 # of Sutures: 1 Suture Type: Silk Drain Placement: No Sterile Dressing Applied: Nurse Tetanus Status Addressed: Yes (up to date) Complications: No Course - Vital Signs Last Recorded V/S: Last Vital Signs Temp 36.6 C 07/12/18 17:44 Pulse 95 07/12/18 17:44 Resp 16 07/12/18 17:44 BP 132/63 07/12/18 17:44 Pulse Ox 98 07/12/18 17:44 - Orders/Labs/Meds Orders: Active Orders 24 hr Category Date Time Status Communication Order [RC] STAT Care 07/12/18 17:46 Ordered Meds: Medications Discontinued Medications Generic Name Dose Route Start Last Admin Trade Name Abby PRN Reason Stop Dose Admin Bacitracin 1 dose 07/12/18 17:43 Bacitracin Oint 1 Gm TOP 07/12/18 17:44 ONETIME ONE Departure - Departure Time of Disposition: 17:44 Disposition: Home, Self-Care 01 Clinical Impression: Finger laceration Qualifiers: Encounter type: initial encounter Finger: index finger Damage to nail status: without damage Foreign body presence: without foreign body Laterality: right Qualified Code(s): S61.210A - Laceration without foreign body of right index finger without damage to nail, initial encounter - Discharge Information Instructions: Laceration Care, Adult, [id number] Referrals: PCP,None [Primary Care Provider] - Forms: ED Department Discharge Additional Instructions: The following information is given to patients seen in the emergency department who are being discharged to home. This information is to outline your options for follow-up care. We provide all patients seen in our emergency department with a follow-up referral. The need for follow-up, as well as the timing and circumstances, are variable depending upon the specifics of your emergency department visit. If you don't have a primary care physician on staff, we will provide you with a referral. We always advise you to contact your personal physician following an emergency department visit to inform them of the circumstance of the visit and for follow-up with them and/or the need for any referrals to a consulting specialist. The emergency department will also refer you to a specialist when appropriate. This referral assures that you have the opportunity for follow-up care with a specialist. All of these measure are taken in an effort to provide you with optimal care, which includes your follow-up. Under all circumstances we always encourage you to contact your private physician who remains a resource for coordinating your care. When calling for follow-up care, please make the office aware that this follow-up is from your recent emergency room visit. If for any reason you are refused follow-up, please contact the [facility] Emergency Department at and asked to speak to the emergency department charge nurse. [facility] [address] [place] [address] [place] [address] 1. Keep the area clean and dry. Continue to monitor for signs of infection as discussed. Sutures to be removed in 7-10 days. 2. Tylenol and/or ibuprofen as directed and as needed for pain management and discomfort. 3. Please follow-up with your primary care provider as discussed. Return to the ED as needed and as discussed. - My Orders Last 24 Hours: My Active Orders 07/12/18 17:46 Communication Order [RC] STAT - Assessment/Plan Last 24 Hours: My Active Orders 07/12/18 17:46 Communication Order [RC] STAT
== END 2018-07-12 17:56 | disposition home or self-care (01) ==
LOC: MW.ED 16:18
DX: S61.210A Laceration without foreign body of right index finger without damage to nail, initial encounter (principal); L08.9 Local infection of the skin and subcutaneous tissue, unspecified; W22.8XXA Striking against or struck by other objects, initial encounter; Y99.0 Civilian activity done for income or pay
CPT/HCPCS: 12001; 99282

== ENCOUNTER 2018-10-07 04:18 | Emergency (ER) | payer BC, OTHER ==
[2018-10-07] MEDS ORDERED: Ketorolac 30 MG/ML SDV IVPUSH ONE (04:30)
[2018-10-07] MEDS ORDERED: Ondansetron 4 MG/2 ML SDV IVPUSH ONE (04:30)
[2018-10-07] MEDS ORDERED: Sodium Chloride 0.9% 1,000 ML IV ONE (04:30)
--- NOTE | 2018-10-07 04:31 | EDM.PDOC ---
ED HPI GENERAL MEDICAL PROBLEM - General Chief Complaint: Abdominal Pain Stated Complaint: RIGHT SIDE ABDOMINAL PAIN Time Seen by Provider: 10/07/18 04:31 Source of Information: Reports: Patient - History of Present Illness INITIAL COMMENTS - FREE TEXT/NARRATIVE: HISTORY AND PHYSICAL: History of present illness: Patient with renal stone is presents with right-sided flank pain nonradiating 5 out of 10 no fever chills or sweats he has had a couple episodes of vomiting tonight along with hematuria No chest pain shortness breath headache dizziness or palpitation no bowel symptoms Review of systems: As per history of present illness and below otherwise all systems reviewed and negative. Past medical history: As per history of present illness and as reviewed below otherwise noncontributory. Surgical history: As per history of present illness and as reviewed below otherwise noncontributory. Social history: No reported history of drug or alcohol abuse. Family history: As per history of present illness and as reviewed below otherwise noncontributory. Physical exam: HEENT: Atraumatic, normocephalic, pupils reactive, negative for conjunctival pallor or scleral icterus, mucous membranes moist, throat clear, neck supple, nontender, trachea midline. Lungs: Clear to auscultation, breath sounds equal bilaterally, chest nontender. Heart: S1S2, regular, negative for clicks, rubs, or JVD. Abdomen: Soft, nondistended, nontender. Negative for masses or hepatosplenomegaly. Negative for costovertebral tenderness. Pelvis: Stable nontender. Genitourinary: Deferred. Rectal: Deferred. Extremities: Atraumatic, negative for cords or calf pain. Neurovascular unremarkable. Neuro: Awake, alert, oriented. Cranial nerves II through XII unremarkable. Cerebellum unremarkable. Motor and sensory unremarkable throughout. Exam nonfocal. Diagnostics: [CBC CMP UA lipase GC chlamydia CT abdomen pelvis without contrast ] Therapeutics: [Normal saline Toradol Zofran ] Impression: Hematuria [Abdominal pain]-resolved Patient has history of diabetes-medication noncompliant Definitive disposition and diagnosis as appropriate pending reevaluation and review of above. Right Upper Abdomen Pain Score (Numeric/FACES): 8 - Related Data Allergies Allergy/AdvReac Type Severity Reaction Status Date / Time codeine Allergy Nausea Verified 10/07/18 04:33 Home Meds: Home Meds . [No Known Home Meds] 11/05/17 [History] Past Medical History HEENT History: Reports: Hard of Hearing Other HEENT History: has bilateral hearing aides Gastrointestinal History: Reports: Colon Polyp Other Gastrointestinal History: occasional heartburn Genitourinary History: Reports: Renal Calculus Musculoskeletal History: Reports: Fracture Other Musculoskeletal History: hx of fx right hand Neurological History: Reports: Other (See Below) Other Neuro History: hx of motion sickness Endocrine/Metabolic History: Reports: Diabetes, Type II - Infectious Disease History Infectious Disease History: Reports: Chicken Pox - Past Surgical History Head Surgeries/Procedures: Reports: None GI Surgical History: Reports: Colonoscopy, Hernia, Inguinal, Other (See Below) Other GI Surgeries/Procedures: hx of bilateral inguinal hernia repairs and umbilical hernia repair Male Surgical History: Reports: Lithotripsy (ESWL) Musculoskeletal Surgical History: Reports: ORIF Other Musculoskeletal Surgeries/Procedures:: hx of pinning right hand fx, pins removed and ORIF with plate and screws Dermatological Surgical History: Reports: Skin Graft Social & Family History - Family History Family Medical History: Noncontributory - Caffeine Use Caffeine Use: Reports: Soda Caffeine Use Comment: daily ED ROS GENERAL - Review of Systems Review Of Systems: See Below ED EXAM, GENERAL - Physical Exam Exam: See Below Course - Vital Signs Last Recorded V/S: Last Vital Signs Temp 97 F 10/07/18 04:29 Pulse 71 10/07/18 04:29 Resp 22 H 10/07/18 04:29 BP 138/56 L 10/07/18 04:29 Pulse Ox 94 L 10/07/18 04:29 - Orders/Labs/Meds Orders: Active Orders 24 hr Category Date Time Status CHLAMYDIA AND GONORRHEA BY TMA Stat Lab 10/07/18 04:25 Received Labs: Laboratory Tests 10/07/18 10/07/18 10/07/18 Range/Units 04:25 04:30 04:30 WBC 7.09 (4.0-11.0) K/uL RBC 4.86 (4.50-5.90) M/uL Hgb 14.9 (13.0-17.0) g/dL Hct 42.9 (38.0-50.0) % MCV 88.3 (80.0-98.0) fL MCH 30.7 (27.0-32.0) pg MCHC 34.7 (31.0-37.0) g/dL RDW Std Deviation 40.5 (28.0-62.0) fl RDW Coeff of Mar 13 (11.0-15.0) % Plt Count 193 (150-400) K/uL MPV 10.20 (7.40-12.00) fL Neut % (Auto) 34.0 L (48.0-80.0) % Lymph % (Auto) 58.3 H (16.0-40.0) % Esmeralda % (Auto) 6.1 (0.0-15.0) % Eos % (Auto) 1.3 (0.0-7.0) % Baso % (Auto) 0.3 (0.0-1.5) % Neut # (Auto) 2.4 (1.4-5.7) K/uL Lymph # (Auto) 4.1 H (0.6-2.4) K/uL Esmeralda # (Auto) 0.4 (0.0-0.8) K/uL Eos # (Auto) 0.1 (0.0-0.7) K/uL Baso # (Auto) 0.0 (0.0-0.1) K/uL Nucleated RBC % 0.0 /100WBC Nucleated RBCs # 0 K/uL Sodium 137 (136-148) mmol/L Potassium 4.4 (3.5-5.1) mmol/L Chloride 103 (98-107) mmol/L Carbon Dioxide 25.1 (21.0-32.0) mmol/L BUN 18 (7.0-18.0) mg/dL Creatinine 1.0 (0.8-1.3) mg/dL Est Cr Clr Drug Dosing 97.21 mL/min Estimated GFR (MDRD) > 60.0 ml/min Glucose 213 H (74-106) mg/dL Calcium 8.8 (8.5-10.1) mg/dL Total Bilirubin 0.3 (0.2-1.0) mg/dL AST 8 L (15-37) IU/L ALT 30 (14-63) IU/L Alkaline Phosphatase 88 (46-116) U/L Troponin I < 0.050 (0.000-0.056) ng/mL Total Protein 7.5 (6.4-8.2) g/dL Albumin 4.1 (3.4-5.0) g/dL Globulin 3.4 (2.6-4.0) g/dL Albumin/Globulin Ratio 1.2 (0.9-1.6) Lipase 150 (73-393) U/L Urine Color YELLOW Urine Appearance CLEAR Urine pH 6.0 (5.0-8.0) Ur Specific Palmer >= 1.030 (1.001-1.035) Urine Protein NEGATIVE (NEGATIVE) mg/dL Urine Glucose (UA) 500 H (NEGATIVE) mg/dL Urine Ketones NEGATIVE (NEGATIVE) mg/dL Urine Occult Blood LARGE H (NEGATIVE) Urine Nitrite NEGATIVE (NEGATIVE) Urine Bilirubin NEGATIVE (NEGATIVE) Urine Urobilinogen 0.2 (<2.0) EU/dL Ur Leukocyte Esterase NEGATIVE (NEGATIVE) Urine RBC 5-8 (0-2/HPF) Urine WBC 0-1 (0-5/HPF) Ur Epithelial Cells RARE (NONE-FEW) Urine Bacteria RARE (NEGATIVE) Meds: Medications Discontinued Medications Generic Name Dose Route Start Last Admin Trade Name Abby PRN Reason Stop Dose Admin Sodium Chloride 1,000 mls @ 999 mls/hr 10/07/18 04:30 10/07/18 04:42 Normal Saline IV 10/07/18 05:30 999 mls/hr STAT ONE Administration Ketorolac Tromethamine 30 mg 10/07/18 04:30 10/07/18 04:42 Toradol IVPUSH 10/07/18 04:31 30 mg ONETIME ONE Administration Ondansetron HCl 8 mg 10/07/18 04:30 10/07/18 04:42 Zofran IVPUSH 10/07/18 04:31 8 mg ONETIME ONE Administration Departure - Departure Time of Disposition: 06:14 Disposition: Home, Self-Care 01 Condition: Good Clinical Impression: Flank pain - Discharge Information Referrals: PCP,None [Ordering Only Provider] - Forms: ED Department Discharge Additional Instructions: Follow-up with primary care concerning diabetes management Follow-up with urology concerning hematuria Return to emergency room if symptoms persist or worsen or if new concerning symptoms develop [facility] - Urology [address] [place] [id number] [facility] - Primary Care [address] [place] [id number] The following information is given to patients seen in the emergency department who are being discharged to home. This information is to outline your options for follow-up care. We provide all patients seen in our emergency department with a follow-up referral. The need for follow-up, as well as the timing and circumstances, are variable depending upon the specifics of your emergency department visit. If you don't have a primary care physician on staff, we will provide you with a referral. We always advise you to contact your personal physician following an emergency department visit to inform them of the circumstance of the visit and for follow-up with them and/or the need for any referrals to a consulting specialist. The emergency department will also refer you to a specialist when appropriate. This referral assures that you have the opportunity for follow-up care with a specialist. All of these measure are taken in an effort to provide you with optimal care, which includes your follow-up. Under all circumstances we always encourage you to contact your private physician who remains a resource for coordinating your care. When calling for follow-up care, please make the office aware that this follow-up is from your recent emergency room visit. If for any reason you are refused follow-up, please contact the [facility] emergency department at and asked to speak to the emergency department charge nurse. - My Orders Last 24 Hours: My Active Orders 10/07/18 04:25 CHLAMYDIA AND GONORRHEA BY TMA Stat - Assessment/Plan Last 24 Hours: My Active Orders 10/07/18 04:25 CHLAMYDIA AND GONORRHEA BY TMA Stat
[2018-10-07 05:02] LABS: BLOOD UREA NITROGEN,BUN 18 mg/dL (7.0-18.0); CARBON DIOXIDE,CO2 25.1 mmol/L (21.0-32.0); CHLORIDE,CL 103 mmol/L (98-107); GLUCOSE RANDOM 213 mg/dL (74-106); LIPASE 150 U/L (73-393); POTASSIUM,K 4.4 mmol/L (3.5-5.1); SODIUM,NA 137 mmol/L (136-148)
--- NOTE | 2018-10-07 06:05 | CT ---
INDICATION: RUQ and right flank pain CT ABDOMEN AND PELVIS WITHOUT CONTRAST TECHNIQUE: Multidetector CT imaging was performed through the abdomen and pelvis without intravenous contrast administration. Coronal and sagittal reconstructions were generated. COMPARISON: None. FINDINGS: Lower chest: Lung bases are clear. Liver: Fatty infiltration of liver. Gallbladder and bile ducts: No gallbladder wall thickening or calcified gallstones. No biliary dilation identified. Pancreas: Unremarkable. Spleen: Normal. Adrenals: No nodules or masses. Kidneys, ureters, and urinary bladder: Multiple bilateral nonobstructing intrarenal stones. No ureteral stones or hydronephrosis. No bladder mass or definite wall thickening. Gastrointestinal tract: Normal caliber bowel without wall thickening. The appendix is normal. Vascular structures: Normal for age. Peritoneum: No free air, abscess, or significant free fluid. Lymph nodes: No pathologically enlarged nodes identified. Reproductive organs: No pelvic masses. Bones: Normal for age. IMPRESSION: 1. No acute abnormality identified. No cause for the patient`s symptoms is demonstrated. 2. Multiple bilateral nonobstructing intrarenal stones. 3. Fatty infiltration of liver. JOSAFAT MONTES MD [employer] Dictated by Jake Montes MD @ 10/07/2018 6:04:22 AM Dictated by: Jake Montes MD @ 10/07/2018 06:04:42 (Electronically Signed)
== END 2018-10-07 06:20 | disposition home or self-care (01) ==
LOC: MW.ED 04:18
DX: R31.9 Hematuria, unspecified (principal); R10.9 Unspecified abdominal pain; E11.9 Type 2 diabetes mellitus without complications; Z88.5 Allergy status to narcotic agent
CPT/HCPCS: 36415; 74176; 80053; 81001; 83690; 84484; 85025; 87491; 87591; 96361; 96374; 96375; 99284; J1885; J2405; J7040; 99282

== ENCOUNTER 2021-08-23 12:06 | Emergency (ER) | payer OTHER ==
[2021-08-23] MEDS ORDERED: Ondansetron 4 MG/2 ML SDV IVPUSH ONE (13:10)
[2021-08-23] MEDS ORDERED: Ketorolac 30 MG/ML SDV IVPUSH ONE (13:10)
[2021-08-23] MEDS ORDERED: Sodium Chloride 0.9% 1,000 ML IV ONE (13:10)
[2021-08-23 14:38] LABS: CARBON DIOXIDE,CO2 26.6 mmol/L (21.0-32.0); POTASSIUM,K 4.3 mmol/L (3.5-5.1)
[2021-08-23 14:44] LABS: ESTIMATED GFR 76.5 ml/min
[2021-08-23] MEDS ORDERED: Iopamidol 755 MG/ML 500 ML Multipack Bottle IVPUSH STA (15:33)
== END 2021-08-23 16:32 | disposition home or self-care (01) ==
LOC: MW.ED 12:06
DX: N13.2 Hydronephrosis with renal and ureteral calculous obstruction (principal); E11.9 Type 2 diabetes mellitus without complications; Z88.5 Allergy status to narcotic agent
CPT/HCPCS: 36415; 74177; 80053; 81001; 83605; 83690; 83735; 85025; 96374; 96375; 99284; J1885; J2405; J7030; Q9967

== ENCOUNTER 2021-09-21 09:25 | Emergency (ER) | payer OTHER ==
[2021-09-21] MEDS ORDERED: Ondansetron 4 MG/2 ML SDV IVPUSH ONE (09:36)
[2021-09-21] MEDS ORDERED: Morphine 4 MG/ML VIAL IVPUSH ONE (09:36)
[2021-09-21] MEDS ORDERED: Ketorolac 30 MG/ML SDV IVPUSH ONE (09:36)
[2021-09-21] MEDS ORDERED: Sodium Chloride 0.9% 1,000 ML IV ONE (09:36)
[2021-09-21 10:31] LABS: CARBON DIOXIDE,CO2 21.7 mmol/L (21.0-32.0); POTASSIUM,K 4.4 mmol/L (3.5-5.1)
[2021-09-21] MEDS ORDERED: HYDROmorphone 1 MG/ML Syringe IVPUSH ONE ×2 (11:20→12:19)
[2021-09-21] MEDS ORDERED: Iopamidol 755 MG/ML 500 ML Multipack Bottle IVPUSH STA (11:24)
== END 2021-09-21 12:45 | disposition home or self-care (01) ==
LOC: MW.ED 09:25
DX: N20.0 Calculus of kidney (principal); E11.9 Type 2 diabetes mellitus without complications; Z79.899 Other long term (current) drug therapy; Z88.8 Allergy status to other drugs, medicaments and biological substances
CPT/HCPCS: 36415; 74177; 80053; 83690; 85025; 96361; 96374; 96375; 96376; 99284; J1170; J1885; J2270; J2405; J7030; Q9967

== ENCOUNTER 2022-01-22 10:33 | Emergency (ER) | payer OTHER ==
[2022-01-22] MEDS ORDERED: HYDROmorphone 1 MG/ML Syringe IM ONE (10:46)
[2022-01-22] MEDS ORDERED: Ondansetron 4 MG Tab.DIS PO ONE (10:46)
[2022-01-22] MEDS ORDERED: Orphenadrine 60 MG/2 ML Inj IM ONE (10:49)
[2022-01-22] MEDS ORDERED: Ketorolac 60 MG/2 ML SDV IM ONE (10:49)
== END 2022-01-22 12:09 | disposition home or self-care (01) ==
LOC: MW.ED 10:33
DX: S20.212A Contusion of left front wall of thorax, initial encounter (principal); E11.9 Type 2 diabetes mellitus without complications; Z88.5 Allergy status to narcotic agent; Z79.899 Other long term (current) drug therapy
CPT/HCPCS: 71101; 96372; 99283; J1885; J2360

== ENCOUNTER 2023-07-22 03:38 | Emergency (ER) | payer OTHER ==
[2023-07-22] MEDS: Sodium Chloride 0.9% 1,000 ML IV ONE (04:05)
[2023-07-22] MEDS: Sodium Chloride 0.9% 2.5 ML Syringe FLUSH PRN ×2 (04:06→04:43)
[2023-07-22] MEDS: Sodium Chloride 0.9% 10 ML Syringe FLUSH PRN ×2 (04:06→04:43)
[2023-07-22 04:07] LABS: BASOPHILS ABSOLUTE AUTO 0.03 K/uL (0.00-0.20); BASOPHILS PERCENT AUTO 0.4 % (0.0-1.0); EOSINOPHILS ABSOLUTE AUTO 0.05 K/uL (0.00-0.45); EOSINOPHILS PERCENT AUTO 0.7 % (0.0-6.0); HEMATOCRIT 42.6 % (42.0-52.0); HEMOGLOBIN 15.2 g/dL (14.0-18.0); IMMATURE GRAN ABSOLUTE AUTO 0.04 K/uL (0.00-0.05); IMMATURE GRAN PERCENT AUTO 0.6 % (0.0-0.4); LYMPHOCYTES ABSOLUTE AUTO 2.72 K/uL (1.00-4.80); LYMPHOCYTES PERCENT AUTO 37.6 % (24.0-44.0); MEAN CORPUSCULAR HEMOGLOBIN 30.8 pg (28.0-32.0); MEAN CORPUSCULAR HGB CONC 35.7 g/dL (32.0-36.0); MEAN CORPUSCULAR VOLUME 86.2 fL (83.0-99.0); MEAN PLATELET VOLUME 9.8 fL (9.4-12.4); MONOCYTES ABSOLUTE AUTO 0.46 K/uL (0.00-0.80); MONOCYTES PERCENT AUTO 6.4 % (0.0-8.0); NEUTROPHILS ABSOLUTE AUTO 3.93 K/uL (1.80-7.70); NEUTROPHILS PERCENT AUTO 54.3 % (41.0-71.0); PLATELET COUNT,PLT 192 K/uL (150-400); RED BLOOD CELL COUNT 4.94 M/uL (4.52-5.90); WHITE BLOOD CELL COUNT,WBC 7.23 K/uL (3.9-11.3)
[2023-07-22 04:08] LABS: BICARBONATE,VENOUS 27 mEQ/mL (22-28); PCO2 VENOUS 48 mmHG (41-51); PH,VENOUS 7.36 (7.31-7.41)
[2023-07-22 04:09] LABS: PO2 VENOUS < 30 mmHG (35-45)
[2023-07-22 04:21] LABS: HEMOGLOBIN A1C 10.6 %
[2023-07-22 04:34] LABS: A/G RATIO 1.1 (0.9-1.6); ALANINE AMINOTRANSFERASE,ALT 35 IU/L (14-63); ALKALINE PHOSPHATASE 102 U/L (46-116); ASPARTATE AMNIOTRANSFERASE,AST 11 IU/L (15-37); BILIRUBIN TOTAL 0.6 mg/dL (0.2-1.0); BLOOD UREA NITROGEN,BUN 12 mg/dL (7.0-18.0); CALCIUM 8.8 mg/dL (8.5-10.1); CARBON DIOXIDE,CO2 25.9 mmol/L (21.0-32.0); CHLORIDE,CL 99 mmol/L (98-107); GLUCOSE RANDOM 255 mg/dL (74-106); LIPASE 35 U/L (16-77); MAGNESIUM 2.1 mg/dL (1.8-2.4); POTASSIUM,K 4.2 mmol/L (3.5-5.1); PROTEIN TOTAL,TP 7.5 g/dL (6.4-8.2); SODIUM,NA 137 mmol/L (136-148)
[2023-07-22 04:35] LABS: ESTIMATED GFR 94 mL/min (>60)
[2023-07-22] MEDS: Lactated Ringers 1,000 ML IV STA (04:42)
== END 2023-07-22 05:51 | disposition home or self-care (01) ==
LOC: MW.ED 03:38
DX: E11.9 Type 2 diabetes mellitus without complications (principal); R11.2 Nausea with vomiting, unspecified; Z88.5 Allergy status to narcotic agent; Z79.85 Long-term (current) use of injectable non-insulin antidiabetic drugs; Z79.899 Other long term (current) drug therapy
CPT/HCPCS: 36415; 71046; 80053; 82009; 82803; 82947; 83036; 83690; 83735; 84484; 85025; 93005; 96360; 99284; J3490; J7030; 93010; 99283